=== PATIENT | female | born 1975 | race Caucasian/White ===

== ENCOUNTER 2018-07-30 14:31 | Emergency (ER) | payer OTHER | END 2018-07-30 18:02 | disposition home or self-care (01) | LOC: FTE 14:31 | DX: M25.511 Pain in right shoulder (principal); I10 Essential (primary) hypertension; J45.909 Unspecified asthma, uncomplicated; F17.210 Nicotine dependence, cigarettes, uncomplicated; M75.91 Shoulder lesion, unspecified, right shoulder | CPT/HCPCS: 73030; 73030-RT; 99283-25 ==